=== PATIENT | female | born 2005 | race Hispanic/Latino ===

== ENCOUNTER 2023-03-27 09:17 | Emergency (ER) | payer OTHER, SELFPAY ==
[2023-03-27] MEDS ORDERED: IBUP-1114 PO (09:40)
[2023-03-27] MEDS ORDERED: ACET65SU PO (09:41)
[2023-03-27 11:33] VITALS: BP 111/53; TEMP 97.5; O2SAT 99
== END 2023-03-27 11:34 | disposition home or self-care (01) ==
LOC: M ED 09:17
DX: M25.561 Pain in right knee (principal); Z79.1 Long term (current) use of non-steroidal anti-inflammatories (NSAID)

== ENCOUNTER 2023-04-25 12:14 | Inpatient (IN) | payer OTHER ==
[~2023-04-25] VITALS: Ht 165.1 cm; Wt 77.3 kg
[~2023-04-25 12:14] MED LIST: ACET65SU PO; IBUP-1114 PO
[2023-04-25 13:11] LABS: HEMOGLOBIN 13.6 g/dl (12.0-15.5); MEAN CORPUSCULAR HEMOGLOBIN 28.2 pg (27.0-33.0); MEAN CORPUSCULAR HGB CONC 33.2 g/dl (32.0-36.5); MEAN CORPUSCULAR VOLUME 84.9 fl (80.0-96.0); PLATELET COUNT, AUTOMATED 255 10^3/uL (150-450); RED BLOOD COUNT 4.83 10^6/uL (4.00-5.40); WHITE BLOOD COUNT 4.6 10^3/uL (4.0-10.0)
[2023-04-25 13:34] LABS: ETHYL ALCOHOL (ETHANOL) < 0.003 % (0.000-0.010)
[2023-04-25 13:36] LABS: ALBUMIN 3.9 G/DL (3.2-5.2); ALKALINE PHOSPHATASE 74 U/L (46-116); ALT/SGPT 29 U/L (7.0-40); AST/SGOT 17 U/L (<34); BILIRUBIN,DIRECT 0.3 MG/DL (<0.4); BILIRUBIN,TOTAL 0.8 MG/DL (0.3-1.2); BLOOD UREA NITROGEN 11 MG/DL (9-23); CALCIUM LEVEL 8.7 MG/DL (8.5-10.1); CARBON DIOXIDE LEVEL 23 MMOL/L (20-31); CHLORIDE LEVEL 109 MMOL/L (98-107); CREATININE FOR GFR 0.68 MG/DL (0.55-1.30); GLUCOSE, FASTING 90 MG/DL (60-100); SALICYLATE LEVEL < 3.0 MG/DL (<30); SODIUM LEVEL 139 MMOL/L (136-145); THYROID STIMULATING HORMONE 0.815 uIU/ML (0.48-4.17); TOTAL PROTEIN 7.5 G/DL (5.7-8.2)
[2023-04-25 13:55] LABS: HCG, SERUM QUALITATIVE NEGATIVE (NEGATIVE)
[2023-04-25 15:24] LABS: AMPHETAMINES LEVEL URINE NEGATIVE (NEGATIVE); BARBITURATES URINE NEGATIVE (NEGATIVE)
[2023-04-25 15:25] LABS: BENZODIAZEPINES URINE NEGATIVE (NEGATIVE); CANNABINOIDS URINE NEGATIVE (NEGATIVE); COCAINE METABOLITE URINE NEGATIVE (NEGATIVE); METHADONE URINE NEGATIVE (NEGATIVE); OPIATES URINE NEGATIVE (NEGATIVE); PHENCYCLIDINE URINE NEGATIVE (NEGATIVE)
[2023-04-25] MEDS ORDERED: ACETAMINOPHEN TAB 650MG DOSE (2X325MG) PO PRN (15:30)
[2023-04-25] MEDS ORDERED: MOM 30ML SUSPENSION UDC PO PRN (15:30)
[2023-04-25] MEDS ORDERED: CVS-161 PO (16:05)
[2023-04-25] MEDS ORDERED: IBUP1TAB7 PO (16:05)
[2023-04-25] MEDS ORDERED: HOME MED LIST COMPLETE! XX SCH (16:10)
[2023-04-25 17:25] VITALS: BP 119/61; TEMP 98; O2SAT 100
[2023-04-25] MEDS: traZODone 50 MG TAB PO PRN (20:45)
[2023-04-26 06:25] VITALS: BP 110/52; TEMP 98.4; O2SAT 98
[2023-04-26] MEDS: SERTRALINE HCL 50 MG TAB PO SCH (09:58)
[2023-04-26 17:48] VITALS: BP 126/65; TEMP 97.5; O2SAT 99
[2023-04-27 06:36] VITALS: BP 112/53; TEMP 98.5; O2SAT 97
[2023-04-27] MEDS: ONDANSETRON 4MG ORAL DISINTEGRATING TAB PO PRN (09:12)
[2023-04-27 18:57] VITALS: BP 135/76; TEMP 97.7; O2SAT 100
[2023-04-27] MEDS: traZODone 50 MG TAB PO PRN (22:15)
[2023-04-27] MEDS: PILL CUTTER 1 EACH XX PRN (22:15)
[2023-04-28 06:16] VITALS: BP 104/65; TEMP 98.5; O2SAT 100
[2023-04-28 15:41] VITALS: BP 125/83; TEMP 98; O2SAT 97
[2023-04-28] MEDS: diphenhydrAMINE 25MG CAP PO PRN (22:59)
[2023-04-29 06:30] VITALS: BP 107/58; TEMP 97.9; O2SAT 100
[2023-04-29 16:08] VITALS: BP 121/70; TEMP 98.5; O2SAT 100
[2023-04-29] MEDS: MAALOX 30 ML SUSP *UDC PO PRN (17:13)
[2023-04-30 06:37] VITALS: BP 118/58; TEMP 99.3; O2SAT 98
[2023-04-30 17:48] VITALS: BP 147/65; TEMP 97.8; O2SAT 100
[2023-04-30] MEDS: IBUPROFEN 400MG TAB PO PRN (20:01)
[2023-05-01 06:46] VITALS: BP 103/61; TEMP 98.6; O2SAT 100
[2023-05-01 18:25] VITALS: BP 128/61; TEMP 97.7
[2023-05-02 06:40] VITALS: BP 105/52; TEMP 97.3; O2SAT 100
[2023-05-02 15:14] VITALS: BP 133/62; TEMP 97.8
[2023-05-02] MEDS: traZODone 50 MG TAB PO PRN (21:16)
[2023-05-03 06:30] VITALS: BP 120/47; TEMP 97; O2SAT 97
[2023-05-03] MEDS: ESCITALOPRAM OXALATE 5MG TABLET (LEXAPRO) PO SCH (08:04)
[2023-05-03 18:15] VITALS: BP 117/62; TEMP 98.1
[2023-05-04 06:23] VITALS: BP 118/58; TEMP 98.3; O2SAT 97
[2023-05-04 16:52] VITALS: BP 114/62; TEMP 98.4
[2023-05-04] MEDS: RAMELTEON 8 MG TAB (ROZEREM) PO PRN (20:43)
[2023-05-04] MEDS ORDERED: RAMELTEON 8 MG TAB (ROZEREM) PO SCH (21:00)
[2023-05-05 06:10] VITALS: BP 112/57; TEMP 98.3; O2SAT 98
[2023-05-05] MEDS ORDERED: TRAZ-257 PO (09:10)
[2023-05-05] MEDS ORDERED: ONDA4TAB6 PO (09:10)
[2023-05-05] MEDS ORDERED: HYDR-3363 PO (09:10)
[2023-05-05] MEDS ORDERED: LEXA5TAB13 PO (09:10)
== END 2023-05-05 10:20 | disposition home or self-care (01) | DRG 881 ==
LOC: M ED 12:14 → EDBD 12:14 → M ED INP 15:31 → M PSY 17:26
PROVIDERS: ADMIT Student in an Organized Health Care Education/Training Program; ATTEND Student in an Organized Health Care Education/Training Program
DX: F32.A Depression, unspecified (principal); R45.851 Suicidal ideations; Z56.4 Discord with boss and workmates; R11.0 Nausea; R19.7 Diarrhea, unspecified; T43.225A Adverse effect of selective serotonin reuptake inhibitors, initial encounter

== ENCOUNTER 2023-05-23 19:42 | Inpatient (IN) | payer OTHER ==
[~2023-05-23] VITALS: Ht 195.6 cm; Wt 77.2 kg
[~2023-05-23 19:42] MED LIST changes: +CVS-161 PO; +HYDR-3363 PO; +IBUP1TAB7 PO; +LEXA5TAB13 PO; +ONDA4TAB6 PO; +TRAZ-257 PO
[2023-05-23 20:17] LABS: BASO % 0.6 % (0.0-1.0); EOS # 0.1 10^3/uL (0.0-0.5); EOS % 1.4 % (0.0-3.0); HEMATOCRIT 38.6 % (36.0-47.0); HEMOGLOBIN 12.6 g/dl (12.0-15.5); LYMPH # 2.5 10^3/uL (1.5-5.0); LYMPH % 37.9 % (24.0-44.0); MEAN CORPUSCULAR HEMOGLOBIN 27.3 pg (27.0-33.0); MEAN CORPUSCULAR HGB CONC 32.6 g/dl (32.0-36.5); MEAN CORPUSCULAR VOLUME 83.7 fl (80.0-96.0); MONO # 0.6 10^3/uL (0.0-0.8); MONO % 8.9 % (2.0-8.0); NEUTROPHILS # 3.3 10^3/uL (1.5-8.5); NEUTROPHILS % 50.9 % (36.0-66.0); PLATELET COUNT, AUTOMATED 208 10^3/uL (150-450); RED BLOOD COUNT 4.61 10^6/uL (4.00-5.40); WHITE BLOOD COUNT 6.6 10^3/uL (4.0-10.0)
[2023-05-23] MEDS: NS 1,000 ML IV ONE (20:20)
[2023-05-23 21:00] LABS: HCG, SERUM QUALITATIVE NEGATIVE (NEGATIVE)
[2023-05-23 21:06] LABS: ETHYL ALCOHOL (ETHANOL) < 0.003 % (0.000-0.010)
[2023-05-23 21:08] LABS: ALBUMIN 3.6 G/DL (3.2-5.2); ALKALINE PHOSPHATASE 78 U/L (46-116); ALT/SGPT 76 U/L (7.0-40); AST/SGOT 39 U/L (<34); BILIRUBIN,DIRECT 0.1 MG/DL (<0.4); BILIRUBIN,TOTAL 0.5 MG/DL (0.3-1.2); BLOOD UREA NITROGEN 13 MG/DL (9-23); CALCIUM LEVEL 8.8 MG/DL (8.5-10.1); CARBON DIOXIDE LEVEL 24 MMOL/L (20-31); CHLORIDE LEVEL 105 MMOL/L (98-107); CREATININE FOR GFR 0.66 MG/DL (0.55-1.30); GLUCOSE, FASTING 92 MG/DL (60-100); POTASSIUM SERUM 3.6 MMOL/L (3.5-5.1); SALICYLATE LEVEL < 3.0 MG/DL (<30); SODIUM LEVEL 139 MMOL/L (136-145); TOTAL PROTEIN 6.9 G/DL (5.7-8.2)
[2023-05-23 21:11] LABS: CPK CREATINE PHOSPHOKINASE 68 U/L (34-145)
[2023-05-23] MEDS: MAG SULF 1GM/100ML (MAG RUN) 1 GM in IV 1 EA IV ONE ×2 (21:20→22:33)
[2023-05-23] MEDS: CHARCOAL ACTIVATED LIQUID 25GM/120ML BTL PO ONE (21:20)
[2023-05-23 23:09] LABS: AMPHETAMINES LEVEL URINE NEGATIVE (NEGATIVE); BARBITURATES URINE NEGATIVE (NEGATIVE)
[2023-05-23 23:10] LABS: BENZODIAZEPINES URINE NEGATIVE (NEGATIVE); CANNABINOIDS URINE NEGATIVE (NEGATIVE); COCAINE METABOLITE URINE NEGATIVE (NEGATIVE); METHADONE URINE NEGATIVE (NEGATIVE); OPIATES URINE NEGATIVE (NEGATIVE); PHENCYCLIDINE URINE NEGATIVE (NEGATIVE)
[2023-05-24 04:18] LABS: ALBUMIN 3.1 G/DL (3.2-5.2); ALKALINE PHOSPHATASE 59 U/L (46-116); ALT/SGPT 72 U/L (7.0-40); AST/SGOT 44 U/L (<34); BILIRUBIN,TOTAL 0.6 MG/DL (0.3-1.2); BLOOD UREA NITROGEN 10 MG/DL (9-23); CALCIUM LEVEL 7.7 MG/DL (8.5-10.1); CARBON DIOXIDE LEVEL 22 MMOL/L (20-31); CHLORIDE LEVEL 113 MMOL/L (98-107); CREATININE FOR GFR 0.65 MG/DL (0.55-1.30); GLUCOSE, FASTING 100 MG/DL (60-100); POTASSIUM SERUM 4.2 MMOL/L (3.5-5.1); SODIUM LEVEL 143 MMOL/L (136-145)
[2023-05-24] MEDS ORDERED: TRAZ-189 PO (06:17)
[2023-05-24] MEDS ORDERED: HYDR50TA30 PO (06:17)
[2023-05-24] MEDS ORDERED: MED REC IN PROGRESS XX SCH (06:20)
[2023-05-24] MEDS ORDERED: LEXA5TAB13 PO (08:40)
[2023-05-24] MEDS ORDERED: ONDA4TAB6 PO (08:40)
[2023-05-24] MEDS ORDERED: HOME MED LIST COMPLETE! XX SCH (08:45)
[2023-05-25 06:17] LABS: HEMOGLOBIN 12.6 g/dl (12.0-15.5); MEAN CORPUSCULAR HEMOGLOBIN 27.6 pg (27.0-33.0); MEAN CORPUSCULAR HGB CONC 32.3 g/dl (32.0-36.5); MEAN CORPUSCULAR VOLUME 85.3 fl (80.0-96.0); PLATELET COUNT, AUTOMATED 209 10^3/uL (150-450); RED BLOOD COUNT 4.57 10^6/uL (4.00-5.40); WHITE BLOOD COUNT 5.3 10^3/uL (4.0-10.0)
[2023-05-25 06:44] LABS: BLOOD UREA NITROGEN 13 MG/DL (9-23); CALCIUM LEVEL 9.1 MG/DL (8.5-10.1); CARBON DIOXIDE LEVEL 26 MMOL/L (20-31); CHLORIDE LEVEL 109 MMOL/L (98-107); CREATININE FOR GFR 0.89 MG/DL (0.55-1.30); GLUCOSE, FASTING 90 MG/DL (60-100); POTASSIUM SERUM 4.2 MMOL/L (3.5-5.1); SODIUM LEVEL 142 MMOL/L (136-145)
[2023-05-25 07:08] LABS: MAGNESIUM LEVEL 1.8 MG/DL (1.8-2.4)
[2023-05-25] MEDS: ENOXAPARIN 40MG/0.4ML SYRINGE (J1650 PER 10MG) SC SCH (09:00)
[2023-05-25] MEDS: MAG SULF 1GM/100ML (MAG RUN) 1 GM in IV 1 EA IV ONE (11:29)
[2023-05-25] MEDS: MAGNESIUM OXIDE 400MG TAB (MAG-OX) PO ONE (12:20)
[2023-05-25 17:40] VITALS: BP 112/53; TEMP 97.6; O2SAT 96
== END 2023-05-25 17:40 | DRG 918 ==
LOC: M ED 19:42 → M ED INP 05-24 06:26
PROVIDERS: ADMIT Preventive Medicine Undersea and Hyperbaric Medicine; ATTEND Internal Medicine
DX: T43.212A Poisoning by selective serotonin and norepinephrine reuptake inhibitors, intentional self-harm, initial encounter (principal); T45.0X2A Poisoning by antiallergic and antiemetic drugs, intentional self-harm, initial encounter; T43.592A Poisoning by other antipsychotics and neuroleptics, intentional self-harm, initial encounter; Z79.899 Other long term (current) drug therapy; F32.A Depression, unspecified; R94.31 Abnormal electrocardiogram [ECG] [EKG]

== ENCOUNTER 2023-05-25 16:34 | Inpatient (IN) | payer OTHER ==
[~2023-05-25 16:34] MED LIST changes: +HYDR50TA30 PO; +TRAZ-189 PO
[2023-05-25] MEDS ORDERED: diphenhydrAMINE 25MG CAP PO PRN (17:15)
[2023-05-25] MEDS ORDERED: ACETAMINOPHEN TAB 650MG DOSE (2X325MG) PO PRN (17:15)
[2023-05-25] MEDS ORDERED: MOM 30ML SUSPENSION UDC PO PRN (17:15)
[2023-05-25] MEDS ORDERED: MAALOX 30 ML SUSP *UDC PO PRN (17:15)
[2023-05-25 21:55] VITALS: BP 104/54; TEMP 97.5; O2SAT 98
[2023-05-26 06:53] VITALS: BP 102/58; TEMP 98.3; O2SAT 99
[2023-05-26 16:34] VITALS: BP 125/63; TEMP 97.6; O2SAT 100
[2023-05-26] MEDS: traZODone 50 MG TAB PO PRN (20:05)
[2023-05-26] MEDS: IBUPROFEN 400MG TAB PO PRN (20:05)
[2023-05-27 06:23] VITALS: BP 106/51; TEMP 97.3; O2SAT 98
[2023-05-27] MEDS ORDERED: SENNA 8.6 MG TAB (SENOKOT) PO PRN (09:05)
[2023-05-27] MEDS ORDERED: MIRALAX *UNIT DOSE* 17GM PACKET PO PRN (09:05)
[2023-05-27 10:34] VITALS: BP 106/51; TEMP 97.3; O2SAT 98
[2023-05-27 16:07] VITALS: BP 125/66; TEMP 97.9; O2SAT 98
[2023-05-27] MEDS: traZODone 100 MG TAB PO PRN (20:45)
[2023-05-28 09:30] VITALS: O2SAT 98
[2023-05-28 15:56] VITALS: BP 118/59; TEMP 97.7; O2SAT 100
[2023-05-28] MEDS: ESCITALOPRAM OXALATE 10 MG TAB (LEXAPRO) PO SCH (16:44)
[2023-05-28] MEDS: traZODone 50 MG TAB PO PRN (20:37)
[2023-05-28] MEDS: busPIRone 10 MG TAB PO SCH (20:37)
[2023-05-29 06:14] VITALS: BP 114/55; TEMP 98
[2023-05-29 17:49] VITALS: BP 122/63; TEMP 97.7
[2023-05-29 20:14] VITALS: BP 129/74
[2023-05-29] MEDS: PRAZOSIN 1 MG CAP PO SCH (20:17)
[2023-05-30 06:31] VITALS: BP 110/55; TEMP 98; O2SAT 100
[2023-05-30] MEDS ORDERED: PRAZ1CAP PO (10:06)
[2023-05-30] MEDS ORDERED: BUSP10TA PO (10:06)
[2023-05-30] MEDS ORDERED: TRAZ-252 PO (10:06)
[2023-05-30] MEDS ORDERED: LEXA1TAB PO (10:06)
[2023-05-30 16:03] VITALS: BP 117/55; TEMP 98.1; O2SAT 100
[2023-05-30 20:09] VITALS: BP 134/87
[2023-05-31 06:38] VITALS: BP 127/56; TEMP 97.4; O2SAT 98
== END 2023-05-31 12:59 | disposition home or self-care (01) | DRG 881 ==
LOC: M PSY 21:41
PROVIDERS: ADMIT Student in an Organized Health Care Education/Training Program; ATTEND Student in an Organized Health Care Education/Training Program
DX: F32.A Depression, unspecified (principal); F41.9 Anxiety disorder, unspecified; F60.3 Borderline personality disorder; G47.00 Insomnia, unspecified; K59.00 Constipation, unspecified; Z91.51 Personal history of suicidal behavior; Z56.6 Other physical and mental strain related to work; Z83.3 Family history of diabetes mellitus; Z82.49 Family history of ischemic heart disease and other diseases of the circulatory system; Z81.1 Family history of alcohol abuse and dependence

== ENCOUNTER 2023-07-25 13:14 | Emergency (ER) | payer OTHER ==
[~2023-07-25] VITALS: Ht 165.1 cm; Wt 90.8 kg
[~2023-07-25 13:14] MED LIST changes: +BUSP10TA PO; +LEXA1TAB PO; +ONDA-282 PO; -ONDA4TAB6 PO; +PRAZ1CAP PO; +TRAZ-252 PO
[2023-07-25 14:30] VITALS: BP 132/69; TEMP 98.1; O2SAT 98
== END 2023-07-25 16:01 | disposition home or self-care (01) ==
LOC: M ED 13:14
DX: J06.9 Acute upper respiratory infection, unspecified (principal); B34.8 Other viral infections of unspecified site; Z11.52 Encounter for screening for COVID-19

== ENCOUNTER 2023-10-16 16:09 | Inpatient (IN) | payer OTHER ==
[~2023-10-16] VITALS: Ht 167.6 cm; Wt 77.2 kg
[2023-10-16] MEDS ORDERED: PRAZ1CAP PO (17:52)
[2023-10-16] MEDS ORDERED: TRAZ-257 PO (17:52)
[2023-10-16] MEDS ORDERED: BUSP10TA PO (17:52)
[2023-10-16] MEDS ORDERED: HOME MED LIST COMPLETE! XX SCH (17:55)
[2023-10-16] MEDS ORDERED: MAALOX 30 ML SUSP *UDC PO PRN (19:20)
[2023-10-16] MEDS ORDERED: MOM 30ML SUSPENSION UDC PO PRN (19:20)
[2023-10-16] MEDS ORDERED: ACETAMINOPHEN TAB 650MG DOSE (2X325MG) PO PRN (19:20)
[2023-10-16] MEDS ORDERED: diphenhydrAMINE 25MG CAP PO PRN (19:20)
[2023-10-16] MEDS ORDERED: IBUPROFEN 400MG TAB PO PRN (19:20)
[2023-10-16] MEDS ORDERED: busPIRone 10 MG TAB PO PRN (19:20)
[2023-10-16] MEDS: PRAZOSIN 1 MG CAP PO SCH (21:29)
[2023-10-16] MEDS: traZODone 100 MG TAB PO SCH (21:30)
[2023-10-16 22:00] VITALS: BP 119/66; TEMP 96.9; O2SAT 97
[2023-10-17 06:24] VITALS: BP 110/53; TEMP 98.6; O2SAT 97
[2023-10-17] MEDS: ESCITALOPRAM OXALATE 5MG TABLET (LEXAPRO) PO SCH (08:34)
[2023-10-17 17:46] VITALS: BP 114/58; TEMP 96.6; O2SAT 98
[2023-10-18 06:39] VITALS: BP 108/52; TEMP 97.6; O2SAT 99
[2023-10-18 17:32] VITALS: BP 119/59; TEMP 97.2
[2023-10-18 20:34] VITALS: BP 123/83
[2023-10-19 06:30] VITALS: BP 107/54; TEMP 98.7; O2SAT 98
[2023-11-03] MEDS ORDERED: PRAZ2CAP PO (10:40)
== END 2023-10-19 10:15 | disposition home or self-care (01) | DRG 881 ==
LOC: M ED 16:09 → M ED INP 19:20 → M PSY 21:53
PROVIDERS: ADMIT Psychiatry & Neurology Psychiatry; ATTEND Psychiatry & Neurology Psychiatry
DX: F32.A Depression, unspecified (principal); R45.851 Suicidal ideations; F60.3 Borderline personality disorder; Z91.410 Personal history of adult physical and sexual abuse; F43.10 Post-traumatic stress disorder, unspecified; Z91.51 Personal history of suicidal behavior

== ENCOUNTER 2023-10-30 14:06 | Inpatient (IN) | payer OTHER ==
[~2023-10-30] VITALS: Ht 167.6 cm; Wt 81.0 kg
[2023-10-30 16:25] LABS: HEMATOCRIT 42.6 % (36.0-47.0); HEMOGLOBIN 14.1 g/dl (12.0-15.5); MEAN CORPUSCULAR HEMOGLOBIN 27.4 pg (27.0-33.0); MEAN CORPUSCULAR HGB CONC 33.1 g/dl (32.0-36.5); MEAN CORPUSCULAR VOLUME 82.9 fl (80.0-96.0); PLATELET COUNT, AUTOMATED 235 10^3/uL (150-450); RED BLOOD COUNT 5.14 10^6/uL (4.00-5.40); WHITE BLOOD COUNT 7.6 10^3/uL (4.0-10.0)
[2023-10-30] MEDS ORDERED: LEXA1TAB PO (16:31)
[2023-10-30] MEDS ORDERED: HOME MED LIST COMPLETE! XX SCH (16:35)
[2023-10-30 16:42] LABS: AMPHETAMINES LEVEL URINE NEGATIVE (NEGATIVE); BARBITURATES URINE NEGATIVE (NEGATIVE); BENZODIAZEPINES URINE NEGATIVE (NEGATIVE); CANNABINOIDS URINE NEGATIVE (NEGATIVE); COCAINE METABOLITE URINE NEGATIVE (NEGATIVE); METHADONE URINE NEGATIVE (NEGATIVE); OPIATES URINE NEGATIVE (NEGATIVE); PHENCYCLIDINE URINE NEGATIVE (NEGATIVE)
[2023-10-30 16:44] LABS: ETHYL ALCOHOL (ETHANOL) < 0.003 % (0.000-0.010)
[2023-10-30 16:46] LABS: ALBUMIN 3.9 G/DL (3.2-5.2); ALKALINE PHOSPHATASE 89 U/L (46-116); ALT/SGPT 23 U/L (7.0-40); AST/SGOT 10 U/L (<34); BILIRUBIN,DIRECT 0.2 MG/DL (<0.4); BILIRUBIN,TOTAL 0.5 MG/DL (0.3-1.2); BLOOD UREA NITROGEN 11 MG/DL (9-23); CALCIUM LEVEL 9.4 MG/DL (8.5-10.1); CARBON DIOXIDE LEVEL 26 MMOL/L (20-31); CHLORIDE LEVEL 108 MMOL/L (98-107); CREATININE FOR GFR 0.72 MG/DL (0.55-1.30); GLUCOSE, FASTING 86 MG/DL (60-100); POTASSIUM SERUM 4.1 MMOL/L (3.5-5.1); SALICYLATE LEVEL < 3.0 MG/DL (<30); SODIUM LEVEL 139 MMOL/L (136-145); TOTAL PROTEIN 7.6 G/DL (5.7-8.2)
[2023-10-30 16:48] LABS: THYROID STIMULATING HORMONE 0.894 uIU/ML (0.48-4.17)
[2023-10-30] MEDS ORDERED: diphenhydrAMINE 25MG CAP PO PRN (18:45)
[2023-10-30] MEDS ORDERED: traZODone 50 MG TAB PO PRN (18:45)
[2023-10-30] MEDS ORDERED: MAALOX 30 ML SUSP *UDC PO PRN (18:45)
[2023-10-30] MEDS ORDERED: MOM 30ML SUSPENSION UDC PO PRN (18:45)
[2023-10-30] MEDS ORDERED: ACETAMINOPHEN TAB 650MG DOSE (2X325MG) PO PRN (18:45)
[2023-10-30 22:29] VITALS: BP 127/64; TEMP 97.6; O2SAT 99
[2023-10-31 06:27] VITALS: BP 127/61; TEMP 97.8; O2SAT 100
[2023-10-31] MEDS ORDERED: busPIRone 10 MG TAB PO PRN (14:00)
[2023-10-31 14:31] LABS: HCG, SERUM QUALITATIVE NEGATIVE (NEGATIVE)
[2023-10-31] MEDS: ESCITALOPRAM OXALATE 10 MG TAB (LEXAPRO) PO SCH (14:31)
[2023-10-31 15:51] VITALS: BP 118/67; TEMP 97.3; O2SAT 100
[2023-10-31] MEDS: traZODone 100 MG TAB PO SCH (20:04)
[2023-10-31] MEDS: PRAZOSIN 1 MG CAP PO SCH (20:04)
[2023-11-01 06:26] VITALS: BP 110/54; TEMP 97.6; O2SAT 100
[2023-11-01 17:38] VITALS: BP 115/65; TEMP 97.2; O2SAT 99
[2023-11-01 20:48] VITALS: BP 118/72
[2023-11-02 06:42] VITALS: BP 118/59; TEMP 97.1; O2SAT 99
[2023-11-02] MEDS: IBUPROFEN 400MG TAB PO PRN (10:56)
[2023-11-03] MEDS ORDERED: PRAZ2CAP PO (10:40)
== END 2023-11-02 13:08 | disposition home or self-care (01) | DRG 881 ==
LOC: M ED 14:06 → M ED INP 18:41 → M PSY 21:52
PROVIDERS: ADMIT Psychiatry & Neurology Psychiatry; ATTEND Psychiatry & Neurology Psychiatry
DX: F32.A Depression, unspecified (principal); R45.851 Suicidal ideations; F60.3 Borderline personality disorder; Z56.2 Threat of job loss; Z79.899 Other long term (current) drug therapy; Z76.5 Malingerer [conscious simulation]

== ENCOUNTER → 2023-11-16 | Outpatient (REF) | payer OTHER ==
[~2023-11-16] MED LIST changes: +PRAZ2CAP PO
[2023-11-16 13:30] LABS: Trichomonas vaginalis (AMP) NOT DETECTED (NEGATIVE)
[2023-11-16 13:54] LABS: GC DNA AMPLIFICATION NEGATIVE (NEGATIVE)
== END ==
LOC: M LAB REF 11:29
PROVIDERS: ATTEND Nurse Practitioner Family
DX: Z11.3 Encounter for screening for infections with a predominantly sexual mode of transmission (principal); R30.0 Dysuria